=== PATIENT | male | born 1990 | race Caucasian/White ===

== ENCOUNTER 2020-09-06 18:54 | Emergency (ER) | payer MEDICAID, OTHER ==
[~2020-09-06] VITALS: Ht 185.4 cm; Wt 74.2 kg
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
[2020-09-06] MEDS ORDERED: LORazepam 1MG TABLET PO ONE (19:30)
[2020-09-06] MEDS ORDERED: IBUPROFEN 200 MG TABLET PO ONE (19:30)
[2020-09-06] MEDS ORDERED: LORazepam 1MG TABLET ONE (19:37)
[2020-09-06] MEDS ORDERED: IBUPROFEN 600 MG TABLET ONE (19:37)
[2020-09-06 19:59] VITALS: BP 115/67
== END 2020-09-06 20:23 | disposition home or self-care (01) ==
LOC: ED 19:23
DX: R41.1 Anterograde amnesia (principal); R51.9 Headache, unspecified
CPT/HCPCS: 99283